=== PATIENT | female | born 1930 | race Caucasian/White ===

== ENCOUNTER → 2017-01-21 | Outpatient (CLI) | payer OTHER ==
--- NOTE | 2017-01-21 17:25 | RADRPT ---
PROCEDURE: Video swallowing study CLINICAL INDICATION: Dysphagia TECHNIQUE: Modified barium swallowing study was performed at [facility]. Fluoroscopy was utilized for the procedure. Imaging was confined to the oral pharyngeal and cervica l phases of the swallowing mechanism. Fluoroscopic guidance was utilized during a modified barium s wallowing study with multiple swallows of thin and thick liquids. 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 Some bolus residue patti ining in esophagus; unsure if on top of stricture or bar. Patient would benefit from GI consult for possible EGD/Esophagram as patient reports symptoms associated with esophageal dysphagia Puree, nectar thick by spoon, cup, and straw, mechanical soft, and regular: no penetration/aspiratio n 2.9 minutes of fluoroscopy time was utilized during the procedure. IMPRESSION: 1. Findings as above. 2. Please refer to swallowing therapist's recommendations for future feedings. RPTAT: UU .Hank Jackson MD, Date Time Electronically viewed and signed by .Hank Jackson MD, on 01/21/2017 17:25 .K/
== END | disposition home or self-care (01) ==
LOC: RAD 11:46
PROVIDERS: ATTEND Internal Medicine
DX: R13.10 Dysphagia, unspecified (principal)
CPT/HCPCS: 74230; 92611